=== PATIENT | female | born 1945 | race Two or more races ===

== ENCOUNTER → 2019-12-23 | Emergency (ER) | payer OTHER ==
[~2019-12-23] VITALS: Ht 170.2 cm; Wt 90.7 kg
[~2019-12-23] MED LIST: ACETAMINOPHEN 500 MG TAB PO ONE
[2019-12-23 16:02] VITALS: BP 176/74
== END | disposition home or self-care (01) ==
LOC: EDBD 15:44 → ER 15:44
DX: R51 Headache (principal); V43.52XA Car driver injured in collision with other type car in traffic accident, initial encounter; Y93.I9 Activity, other involving external motion; Y92.410 Unspecified street and highway as the place of occurrence of the external cause; Y99.8 Other external cause status
CPT/HCPCS: 70450